=== PATIENT | female | born 1985 | race Caucasian/White ===

== ENCOUNTER 2017-05-03 07:29 | Emergency (ER) | payer OTHER ==
[~2017-05-03] VITALS: Ht 162.6 cm; Wt 95.2 kg
[~2017-05-03 07:29] MED LIST: IBUP800 PO; OXYACE5T PO; Verotin-Gr Cap1 EACH
[2017-05-03] MEDS ORDERED: Norco 5-325 Ta1 EACH PO (08:22)
[2017-05-03] MEDS ORDERED: CEPH500 PO (08:22)
[2017-05-03] MEDS ORDERED: FLUC150A PO (08:24)
== END 2017-05-03 08:39 | disposition home or self-care (01) ==
LOC: ER 07:29
DX: R59.0 Localized enlarged lymph nodes (principal); F17.200 Nicotine dependence, unspecified, uncomplicated
CPT/HCPCS: 99283

== ENCOUNTER 2018-06-08 20:58 | Emergency (ER) | payer OTHER ==
[~2018-06-08] VITALS: Ht 165.1 cm; Wt 72.6 kg
[~2018-06-08 20:58] MED LIST changes: +CEPH500 PO; +FLUC150A PO; +Norco 5-325 Ta1 EACH PO
== END 2018-06-08 23:45 | disposition home or self-care (01) ==
LOC: ER 20:58
DX: S00.12XA Contusion of left eyelid and periocular area, initial encounter (principal); S00.411A Abrasion of right ear, initial encounter; Y04.8XXA Assault by other bodily force, initial encounter; F17.210 Nicotine dependence, cigarettes, uncomplicated
CPT/HCPCS: 70450; 70486; 72125; 99284-25